=== PATIENT | male | born 1980 | race Two or more races ===

== ENCOUNTER 2017-01-18 21:32 | Inpatient (IN) | payer MEDICARE, MEDICAID ==
[~2017-01-18 21:32] MED LIST: ANTIBIOTIC; ASPIRIN; BACTRIM DS1 TA1 PO; CIPRO500 MG PO; FLEXERIL10 MG PO; FLONASE ALLERG9.9 ML; GLUCOPHAGE1000 MG PO; GLUCOPHAGE500 M3 PO; HUMALOG100 U/ML SQ; HUMALOG100 UNIT/2 SC; HUMULIN N100 U/ML; HUMULIN R100 U/ML; HUMULIN-R100 UNITS/ SC; IBUPROFEN IB200 M1 PO; IBUPROFEN800 M1 PO; KEFLEX500 MG PO; LEVEMIR100 U/M SQ; LEVEMIR100 UNITS/ SC; LEVOFLOXACIN750 M1 PO; LISINOPRIL5 M1 PO; LISINOPRIL5 MG PO; LORTAB 7.5/5001 TAB PO; MOTRIN600 MG PO; NORCO 5-325 TA1 EACH PO; NORCO 5/325 TAB1 TAB PO; NORCO 7.5-3251 EACH PO; NOVOLIN N100 U/ML SQ; PERCOCET 5/3251 TAB PO; TYLENOL325 MG PO; TYLENOL650 MG PO; VOLTAREN75 MG PO; no home meds
[2017-01-18] MEDS ORDERED: NO HOME MEDICATION (23:10)
[2017-01-18 23:53] LABS: BASO % 0.2 % (0-2); EOS % 0.3 % (0-7); HCT-HEMATOCRIT 38.9 % (36.0-53.5); HGB-HEMOGLOBIN 13.2 gm/dl (13.5-17.0); IMMATURE GRANULOCYTES ABSOLUTE 0.04 tho/cmm (0-0.03); IMMATURE GRANULOCYTES PERCENT 0.3 % (0-0.3); LYMPH ABSOLUTE COUNT 1.4 tho/cmm (0.8-4.5); MCHC MEAN CORPUSCULAR HGB CONC 33.9 % (32.0-36.0); MCV (MEAN CELL VOLUME) 88.4 fl (82.0-96.0); MEAN PLATELET VOLUME 9.5 cmc (9.4-12.4); MONO % 10.9 % (0-12); MONOCYTE ABSOLUTE COUNT 1.3 tho/cmm (0.0-1.2); NEUTROPHIL ABSOLUTE COUNT 8.9 tho/cmm (1.6-8.0); NEUTROPHIL-AUTOMATED 8.9 tho/cmm (1.6-8.0); NEUTROPHILS % 76.3 % (40-80); PLATELET COUNT 468 tho/cmm (150-450); RED CELL DISTRIBUTION WIDTH 12.5 % (12.4-16.4); WHITE BLOOD COUNT 11.7 tho/cmm (4.0-10.0)
[2017-01-19 00:03] LABS: ALB/GLOB RATIO 0.4 (0.8-2.0); ALBUMIN 2.4 g/dl (3.5-5.0); ALKALINE PHOSPHATASE 77 U/L (33-138); ANION GAP 12 mmol/L (0-20); AST/SGOT 10 U/L (10-40); BILIRUBIN,TOTAL 0.5 mg/dl (0.0-1.5); BLOOD UREA NITROGEN 14 mg/dl (6-24); CALCIUM 8.5 mg/dl (8.5-10.5); CARBON DIOXIDE-VENOUS 26 mmol/L (22-32); CHLORIDE 99 mmol/l (96-110); CREATININE 0.91 mg/dl (0.60-1.30); GLUCOSE 397 mg/dL (70-110); POTASSIUM 4.1 mmol/L (3.7-5.1); SODIUM 133 mmol/L (135-145); eGFR VALUE FOR BLACK >90 mL/Min
[2017-01-19 00:05] LABS: ALT/SGPT 9 U/L (12-78)
[2017-01-19 00:32] LABS: PROCALCITONIN 0.07 ng/ml (0.05-0.09)
[2017-01-19 00:50] LABS: URINE LEUKOCYTE ESTERASE POSITIVE (NEG); URINE PROTEIN MODERATE (NEG)
[2017-01-19 00:56] LABS: URINE APPEARANCE HAZY; URINE BILIRUBIN NEGATIVE (NEG); URINE BLOOD MODERATE (NEG); URINE COLOR YELLOW; URINE GLUCOSE (UA) LARGE (NEG); URINE KETONE NEGATIVE (NEG); URINE NITRITE NEGATIVE (NEG)
[2017-01-19 00:59] LABS: URINE BACTERIA 2+; URINE EPITHELIAL CELLS RARE /[HPF] (0-10); URINE WBC 20-30 /[HPF] (0-5)
[2017-01-19 08:26] LABS: BASO % 0.1 % (0-2); EOS % 0.5 % (0-7); EOSINOPHIL ABSOLUTE COUNT 0.1 tho/cmm (0.0-0.7); HCT-HEMATOCRIT 34.4 % (36.0-53.5); HGB-HEMOGLOBIN 11.6 gm/dl (13.5-17.0); IMMATURE GRANULOCYTES ABSOLUTE 0.04 tho/cmm (0-0.03); IMMATURE GRANULOCYTES PERCENT 0.3 % (0-0.3); LYMPH % 13.7 % (20-45); LYMPH ABSOLUTE COUNT 1.9 tho/cmm (0.8-4.5); MCH (MEAN CORPUSCULAR HGB) 29.7 pg (28.0-32.0); MCHC MEAN CORPUSCULAR HGB CONC 33.7 % (32.0-36.0); MEAN PLATELET VOLUME 9.6 cmc (9.4-12.4); MONO % 11.7 % (0-12); MONOCYTE ABSOLUTE COUNT 1.6 tho/cmm (0.0-1.2); NEUTROPHIL ABSOLUTE COUNT 10.2 tho/cmm (1.6-8.0); NEUTROPHIL-AUTOMATED 10.2 tho/cmm (1.6-8.0); NEUTROPHILS % 73.7 % (40-80); PLATELET COUNT 408 tho/cmm (150-450); RED BLOOD COUNT 3.91 mil/cmm (4.40-5.70); RED CELL DISTRIBUTION WIDTH 12.5 % (12.4-16.4); WHITE BLOOD COUNT 13.8 tho/cmm (4.0-10.0)
[2017-01-19 08:35] LABS: ANION GAP 11 mmol/L (0-20); BLOOD UREA NITROGEN 10 mg/dl (6-24); C-REACTIVE PROTEIN 17.5 mg/dl (0-0.9); CARBON DIOXIDE-VENOUS 25 mmol/L (22-32); CHLORIDE 104 mmol/l (96-110); CREATININE 0.92 mg/dl (0.60-1.30); MAGNESIUM 2.3 mg/dl (1.3-2.6); POTASSIUM 4.2 mmol/L (3.7-5.1); SODIUM 136 mmol/L (135-145); eGFR VALUE FOR BLACK >90 mL/Min
[2017-01-19 08:40] LABS: GLUCOSE 506 mg/dL (70-110)
[2017-01-19 09:10] LABS: ESR-ERYTHROCYTE SED RATE 139 mm/hr (0-15)
[2017-01-21 06:23] LABS: ANION GAP 11 mmol/L (0-20); BLOOD UREA NITROGEN 9 mg/dl (6-24); CARBON DIOXIDE-VENOUS 25 mmol/L (22-32); CHLORIDE 104 mmol/l (96-110); GLUCOSE 272 mg/dL (70-110); POTASSIUM 3.8 mmol/L (3.7-5.1); SODIUM 136 mmol/L (135-145); eGFR VALUE FOR BLACK >90 mL/Min
[2017-01-21 06:26] LABS: BASO % 0.2 % (0-2); EOS % 1.4 % (0-7); EOSINOPHIL ABSOLUTE COUNT 0.2 tho/cmm (0.0-0.7); HGB-HEMOGLOBIN 11.3 gm/dl (13.5-17.0); IMMATURE GRANULOCYTES ABSOLUTE 0.04 tho/cmm (0-0.03); IMMATURE GRANULOCYTES PERCENT 0.3 % (0-0.3); LYMPH % 15.8 % (20-45); LYMPH ABSOLUTE COUNT 2.1 tho/cmm (0.8-4.5); MCH (MEAN CORPUSCULAR HGB) 29.4 pg (28.0-32.0); MCHC MEAN CORPUSCULAR HGB CONC 33.2 % (32.0-36.0); MCV (MEAN CELL VOLUME) 88.5 fl (82.0-96.0); MEAN PLATELET VOLUME 9.5 cmc (9.4-12.4); MONO % 10.3 % (0-12); MONOCYTE ABSOLUTE COUNT 1.4 tho/cmm (0.0-1.2); NEUTROPHIL ABSOLUTE COUNT 9.6 tho/cmm (1.6-8.0); NEUTROPHIL-AUTOMATED 9.6 tho/cmm (1.6-8.0); PLATELET COUNT 451 tho/cmm (150-450); RED BLOOD COUNT 3.84 mil/cmm (4.40-5.70); RED CELL DISTRIBUTION WIDTH 12.5 % (12.4-16.4); WHITE BLOOD COUNT 13.3 tho/cmm (4.0-10.0)
[2017-01-21 06:30] LABS: C-REACTIVE PROTEIN 12.6 mg/dl (0-0.9)
[2017-01-26 05:19] LABS: BASO % 0.2 % (0-2); EOS % 1.7 % (0-7); EOSINOPHIL ABSOLUTE COUNT 0.2 tho/cmm (0.0-0.7); HCT-HEMATOCRIT 35.1 % (36.0-53.5); HGB-HEMOGLOBIN 11.6 gm/dl (13.5-17.0); IMMATURE GRANULOCYTES ABSOLUTE 0.02 tho/cmm (0-0.03); IMMATURE GRANULOCYTES PERCENT 0.2 % (0-0.3); LYMPH % 13.5 % (20-45); LYMPH ABSOLUTE COUNT 1.7 tho/cmm (0.8-4.5); MCH (MEAN CORPUSCULAR HGB) 29.3 pg (28.0-32.0); MCV (MEAN CELL VOLUME) 88.6 fl (82.0-96.0); MEAN PLATELET VOLUME 8.9 cmc (9.4-12.4); MONO % 11.2 % (0-12); MONOCYTE ABSOLUTE COUNT 1.4 tho/cmm (0.0-1.2); NEUTROPHIL ABSOLUTE COUNT 9.1 tho/cmm (1.6-8.0); NEUTROPHIL-AUTOMATED 9.1 tho/cmm (1.6-8.0); NEUTROPHILS % 73.2 % (40-80); PLATELET COUNT 367 tho/cmm (150-450); RED BLOOD COUNT 3.96 mil/cmm (4.40-5.70); RED CELL DISTRIBUTION WIDTH 12.5 % (12.4-16.4); WHITE BLOOD COUNT 12.5 tho/cmm (4.0-10.0)
[2017-01-26 05:42] LABS: ANION GAP 11 mmol/L (0-20); BLOOD UREA NITROGEN 23 mg/dl (6-24); CARBON DIOXIDE-VENOUS 29 mmol/L (22-32); CHLORIDE 101 mmol/l (96-110); CREATININE 0.95 mg/dl (0.60-1.30); GLUCOSE 325 mg/dL (70-110); POTASSIUM 4.7 mmol/L (3.7-5.1); SODIUM 136 mmol/L (135-145); eGFR VALUE FOR BLACK >90 mL/Min
[2017-01-27 06:25] LABS: BASO % 0.2 % (0-2); EOS % 2.5 % (0-7); EOSINOPHIL ABSOLUTE COUNT 0.3 tho/cmm (0.0-0.7); HCT-HEMATOCRIT 34.4 % (36.0-53.5); HGB-HEMOGLOBIN 11.4 gm/dl (13.5-17.0); IMMATURE GRANULOCYTES ABSOLUTE 0.04 tho/cmm (0-0.03); IMMATURE GRANULOCYTES PERCENT 0.3 % (0-0.3); LYMPH % 16.5 % (20-45); MCH (MEAN CORPUSCULAR HGB) 29.5 pg (28.0-32.0); MCHC MEAN CORPUSCULAR HGB CONC 33.1 % (32.0-36.0); MCV (MEAN CELL VOLUME) 88.9 fl (82.0-96.0); MEAN PLATELET VOLUME 9.4 cmc (9.4-12.4); MONO % 11.4 % (0-12); MONOCYTE ABSOLUTE COUNT 1.4 tho/cmm (0.0-1.2); NEUTROPHIL ABSOLUTE COUNT 8.5 tho/cmm (1.6-8.0); NEUTROPHIL-AUTOMATED 8.5 tho/cmm (1.6-8.0); NEUTROPHILS % 69.1 % (40-80); RED BLOOD COUNT 3.87 mil/cmm (4.40-5.70); RED CELL DISTRIBUTION WIDTH 12.6 % (12.4-16.4); WHITE BLOOD COUNT 12.2 tho/cmm (4.0-10.0)
[2017-01-27 06:34] LABS: ANION GAP 12 mmol/L (0-20); BLOOD UREA NITROGEN 30 mg/dl (6-24); C-REACTIVE PROTEIN 10.6 mg/dl (0-0.9); CARBON DIOXIDE-VENOUS 26 mmol/L (22-32); CHLORIDE 102 mmol/l (96-110); CREATININE 1.08 mg/dl (0.60-1.30); GLUCOSE 370 mg/dL (70-110); PHOSPHOROUS 3.5 mg/dl (2.5-4.9); POTASSIUM 4.3 mmol/L (3.7-5.1); SODIUM 136 mmol/L (135-145); eGFR VALUE FOR BLACK >90 mL/Min
[2017-01-27 09:38] LABS: PLATELET COUNT 182 tho/cmm (150-450)
[2017-01-28 07:16] LABS: BASO % 0.3 % (0-2); EOSINOPHIL ABSOLUTE COUNT 0.4 tho/cmm (0.0-0.7); HCT-HEMATOCRIT 33.9 % (36.0-53.5); HGB-HEMOGLOBIN 11.1 gm/dl (13.5-17.0); IMMATURE GRANULOCYTES ABSOLUTE 0.04 tho/cmm (0-0.03); IMMATURE GRANULOCYTES PERCENT 0.3 % (0-0.3); LYMPH % 20.5 % (20-45); LYMPH ABSOLUTE COUNT 2.4 tho/cmm (0.8-4.5); MCH (MEAN CORPUSCULAR HGB) 29.2 pg (28.0-32.0); MCHC MEAN CORPUSCULAR HGB CONC 32.7 % (32.0-36.0); MCV (MEAN CELL VOLUME) 89.2 fl (82.0-96.0); MEAN PLATELET VOLUME 9.1 cmc (9.4-12.4); MONOCYTE ABSOLUTE COUNT 1.4 tho/cmm (0.0-1.2); NEUTROPHIL ABSOLUTE COUNT 7.6 tho/cmm (1.6-8.0); NEUTROPHIL-AUTOMATED 7.6 tho/cmm (1.6-8.0); NEUTROPHILS % 63.9 % (40-80); PLATELET COUNT 112 tho/cmm (150-450); RED CELL DISTRIBUTION WIDTH 12.6 % (12.4-16.4); WHITE BLOOD COUNT 11.9 tho/cmm (4.0-10.0)
[2017-01-28 07:39] LABS: ALB/GLOB RATIO 0.3 (0.8-2.0); ALKALINE PHOSPHATASE 53 U/L (33-138); ALT/SGPT 13 U/L (12-78); ANION GAP 11 mmol/L (0-20); AST/SGOT 9 U/L (10-40); BILIRUBIN,TOTAL 0.1 mg/dl (0.0-1.5); BLOOD UREA NITROGEN 31 mg/dl (6-24); C-REACTIVE PROTEIN 10.8 mg/dl (0-0.9); CALCIUM 8.9 mg/dl (8.5-10.5); CARBON DIOXIDE-VENOUS 25 mmol/L (22-32); CHLORIDE 110 mmol/l (96-110); CREATININE 1.05 mg/dl (0.60-1.30); POTASSIUM 3.7 mmol/L (3.7-5.1); SODIUM 142 mmol/L (135-145); eGFR VALUE FOR BLACK >90 mL/Min
[2017-01-28 07:42] LABS: GLUCOSE 132 mg/dL (70-110)
[2017-01-28 08:38] LABS: ANION GAP 12 mmol/L (0-20); BLOOD UREA NITROGEN 32 mg/dl (6-24); CALCIUM 8.7 mg/dl (8.5-10.5); CARBON DIOXIDE-VENOUS 24 mmol/L (22-32); CHLORIDE 110 mmol/l (96-110); CREATININE 1.06 mg/dl (0.60-1.30); GLUCOSE 132 mg/dL (70-110); POTASSIUM 3.7 mmol/L (3.7-5.1); PREALBUMIN 15.4 mg/dl (20.0-40.0); SODIUM 142 mmol/L (135-145); eGFR VALUE FOR BLACK >90 mL/Min
[2017-01-29 09:06] LABS: BASO % 0.2 % (0-2); EOS % 3.3 % (0-7); EOSINOPHIL ABSOLUTE COUNT 0.4 tho/cmm (0.0-0.7); HCT-HEMATOCRIT 34.6 % (36.0-53.5); HGB-HEMOGLOBIN 11.3 gm/dl (13.5-17.0); IMMATURE GRANULOCYTES ABSOLUTE 0.04 tho/cmm (0-0.03); IMMATURE GRANULOCYTES PERCENT 0.4 % (0-0.3); LYMPH % 16.1 % (20-45); LYMPH ABSOLUTE COUNT 1.8 tho/cmm (0.8-4.5); MCHC MEAN CORPUSCULAR HGB CONC 32.7 % (32.0-36.0); MCV (MEAN CELL VOLUME) 88.7 fl (82.0-96.0); MONO % 8.5 % (0-12); MONOCYTE ABSOLUTE COUNT 0.9 tho/cmm (0.0-1.2); NEUTROPHIL ABSOLUTE COUNT 7.8 tho/cmm (1.6-8.0); NEUTROPHIL-AUTOMATED 7.8 tho/cmm (1.6-8.0); NEUTROPHILS % 71.5 % (40-80); PLATELET COUNT 76 tho/cmm (150-450); RED CELL DISTRIBUTION WIDTH 12.6 % (12.4-16.4); WHITE BLOOD COUNT 10.9 tho/cmm (4.0-10.0)
[2017-01-29 09:16] LABS: ANION GAP 11 mmol/L (0-20); BLOOD UREA NITROGEN 26 mg/dl (6-24); C-REACTIVE PROTEIN 6.6 mg/dl (0-0.9); CALCIUM 8.9 mg/dl (8.5-10.5); CARBON DIOXIDE-VENOUS 24 mmol/L (22-32); CHLORIDE 108 mmol/l (96-110); CREATININE 1.03 mg/dl (0.60-1.30); GLUCOSE 158 mg/dL (70-110); POTASSIUM 3.8 mmol/L (3.7-5.1); SODIUM 139 mmol/L (135-145); eGFR VALUE FOR BLACK >90 mL/Min
[2017-01-30 06:43] LABS: BASO % 0.3 % (0-2); EOS % 3.5 % (0-7); EOSINOPHIL ABSOLUTE COUNT 0.4 tho/cmm (0.0-0.7); HCT-HEMATOCRIT 29.8 % (36.0-53.5); HGB-HEMOGLOBIN 9.8 gm/dl (13.5-17.0); IMMATURE GRANULOCYTES ABSOLUTE 0.04 tho/cmm (0-0.03); IMMATURE GRANULOCYTES PERCENT 0.4 % (0-0.3); LYMPH % 20.1 % (20-45); LYMPH ABSOLUTE COUNT 2.2 tho/cmm (0.8-4.5); MCH (MEAN CORPUSCULAR HGB) 28.9 pg (28.0-32.0); MCHC MEAN CORPUSCULAR HGB CONC 32.9 % (32.0-36.0); MCV (MEAN CELL VOLUME) 87.9 fl (82.0-96.0); MEAN PLATELET VOLUME 9.6 cmc (9.4-12.4); MONOCYTE ABSOLUTE COUNT 1.2 tho/cmm (0.0-1.2); NEUTROPHILS % 64.7 % (40-80); RED BLOOD COUNT 3.39 mil/cmm (4.40-5.70); RED CELL DISTRIBUTION WIDTH 12.6 % (12.4-16.4); WHITE BLOOD COUNT 10.8 tho/cmm (4.0-10.0)
[2017-01-30 06:59] LABS: ANION GAP 9 mmol/L (0-20); BLOOD UREA NITROGEN 30 mg/dl (6-24); C-REACTIVE PROTEIN 6.1 mg/dl (0-0.9); CALCIUM 8.3 mg/dl (8.5-10.5); CARBON DIOXIDE-VENOUS 26 mmol/L (22-32); CHLORIDE 108 mmol/l (96-110); CREATININE 1.19 mg/dl (0.60-1.30); GLUCOSE 222 mg/dL (70-110); SODIUM 139 mmol/L (135-145); eGFR VALUE FOR BLACK >90 mL/Min
[2017-01-30 08:26] LABS: PLATELET COUNT 41 tho/cmm (150-450)
[2017-01-30 12:53] LABS: PF4 (HIT) ANTIBODY POSITIVE (NEGATIVE)
[2017-01-31 05:36] LABS: BASO % 0.3 % (0-2); EOS % 3.3 % (0-7); EOSINOPHIL ABSOLUTE COUNT 0.4 tho/cmm (0.0-0.7); HCT-HEMATOCRIT 28.8 % (36.0-53.5); HGB-HEMOGLOBIN 9.3 gm/dl (13.5-17.0); IMMATURE GRANULOCYTES ABSOLUTE 0.05 tho/cmm (0-0.03); IMMATURE GRANULOCYTES PERCENT 0.4 % (0-0.3); LYMPH % 20.1 % (20-45); LYMPH ABSOLUTE COUNT 2.4 tho/cmm (0.8-4.5); MCH (MEAN CORPUSCULAR HGB) 28.6 pg (28.0-32.0); MCHC MEAN CORPUSCULAR HGB CONC 32.3 % (32.0-36.0); MCV (MEAN CELL VOLUME) 88.6 fl (82.0-96.0); MEAN PLATELET VOLUME 9.8 cmc (9.4-12.4); MONO % 9.8 % (0-12); MONOCYTE ABSOLUTE COUNT 1.2 tho/cmm (0.0-1.2); NEUTROPHIL ABSOLUTE COUNT 7.9 tho/cmm (1.6-8.0); NEUTROPHIL-AUTOMATED 7.9 tho/cmm (1.6-8.0); NEUTROPHILS % 66.1 % (40-80); RED BLOOD COUNT 3.25 mil/cmm (4.40-5.70); RED CELL DISTRIBUTION WIDTH 12.6 % (12.4-16.4)
[2017-01-31 05:57] LABS: ANION GAP 11 mmol/L (0-20); BLOOD UREA NITROGEN 30 mg/dl (6-24); C-REACTIVE PROTEIN 6.1 mg/dl (0-0.9); CALCIUM 8.4 mg/dl (8.5-10.5); CARBON DIOXIDE-VENOUS 24 mmol/L (22-32); CHLORIDE 110 mmol/l (96-110); CREATININE 0.94 mg/dl (0.60-1.30); GLUCOSE 136 mg/dL (70-110); SODIUM 141 mmol/L (135-145); eGFR VALUE FOR BLACK >90 mL/Min
[2017-01-31 06:08] LABS: PLATELET COUNT 24 tho/cmm (150-450)
[2017-01-31 13:50] LABS: PF4 (HIT) ANTIBODY POSITIVE (NEGATIVE)
[2017-01-31 19:52] LABS: PROTHROMBIN TIME 11.3 SECONDS (9.0-13.6)
[2017-01-31 20:28] LABS: TSH-THYROID STIMULATING HORM. 1.37 uIU/ml (0.40-3.80)
[2017-02-01 05:50] LABS: BASO % 0.2 % (0-2); EOS % 2.9 % (0-7); EOSINOPHIL ABSOLUTE COUNT 0.4 tho/cmm (0.0-0.7); HCT-HEMATOCRIT 28.5 % (36.0-53.5); HGB-HEMOGLOBIN 9.4 gm/dl (13.5-17.0); IMMATURE GRANULOCYTES ABSOLUTE 0.05 tho/cmm (0-0.03); IMMATURE GRANULOCYTES PERCENT 0.4 % (0-0.3); LYMPH % 17.4 % (20-45); LYMPH ABSOLUTE COUNT 2.3 tho/cmm (0.8-4.5); MCH (MEAN CORPUSCULAR HGB) 28.9 pg (28.0-32.0); MCV (MEAN CELL VOLUME) 87.7 fl (82.0-96.0); MEAN PLATELET VOLUME 10.6 cmc (9.4-12.4); MONO % 8.9 % (0-12); MONOCYTE ABSOLUTE COUNT 1.2 tho/cmm (0.0-1.2); NEUTROPHIL ABSOLUTE COUNT 9.3 tho/cmm (1.6-8.0); NEUTROPHIL-AUTOMATED 9.3 tho/cmm (1.6-8.0); NEUTROPHILS % 70.2 % (40-80); RED BLOOD COUNT 3.25 mil/cmm (4.40-5.70); RED CELL DISTRIBUTION WIDTH 12.5 % (12.4-16.4); WHITE BLOOD COUNT 13.2 tho/cmm (4.0-10.0)
[2017-02-01 06:05] LABS: PLATELET COUNT 16 tho/cmm (150-450)
[2017-02-01 06:06] LABS: ALB/GLOB RATIO 0.3 (0.8-2.0); ALBUMIN 2.1 g/dl (3.5-5.0); ALKALINE PHOSPHATASE 53 U/L (33-138); ALT/SGPT 14 U/L (12-78); ANION GAP 11 mmol/L (0-20); AST/SGOT 8 U/L (10-40); BILIRUBIN,TOTAL 0.2 mg/dl (0.0-1.5); BLOOD UREA NITROGEN 36 mg/dl (6-24); C-REACTIVE PROTEIN 7.6 mg/dl (0-0.9); CALCIUM 8.7 mg/dl (8.5-10.5); CARBON DIOXIDE-VENOUS 25 mmol/L (22-32); CHLORIDE 106 mmol/l (96-110); CREATININE 1.12 mg/dl (0.60-1.30); GLUCOSE 196 mg/dL (70-110); POTASSIUM 3.9 mmol/L (3.7-5.1); SODIUM 138 mmol/L (135-145); eGFR VALUE FOR BLACK >90 mL/Min
[2017-02-02 02:32] LABS: ANION GAP 11 mmol/L (0-20); BLOOD UREA NITROGEN 36 mg/dl (6-24); CALCIUM 8.5 mg/dl (8.5-10.5); CARBON DIOXIDE-VENOUS 26 mmol/L (22-32); CHLORIDE 107 mmol/l (96-110); CREATININE 1.15 mg/dl (0.60-1.30); GLUCOSE 175 mg/dL (70-110); MAGNESIUM 2.1 mg/dl (1.3-2.6); SODIUM 140 mmol/L (135-145); eGFR VALUE FOR BLACK >90 mL/Min
[2017-02-02 05:18] LABS: BASO % 0.2 % (0-2); EOS % 3.8 % (0-7); EOSINOPHIL ABSOLUTE COUNT 0.5 tho/cmm (0.0-0.7); HCT-HEMATOCRIT 26.2 % (36.0-53.5); HGB-HEMOGLOBIN 8.5 gm/dl (13.5-17.0); IMMATURE GRANULOCYTES ABSOLUTE 0.11 tho/cmm (0-0.03); IMMATURE GRANULOCYTES PERCENT 0.9 % (0-0.3); LYMPH % 23.9 % (20-45); MCH (MEAN CORPUSCULAR HGB) 28.4 pg (28.0-32.0); MCHC MEAN CORPUSCULAR HGB CONC 32.4 % (32.0-36.0); MCV (MEAN CELL VOLUME) 87.6 fl (82.0-96.0); MONO % 9.4 % (0-12); MONOCYTE ABSOLUTE COUNT 1.2 tho/cmm (0.0-1.2); NEUTROPHIL ABSOLUTE COUNT 7.8 tho/cmm (1.6-8.0); NEUTROPHIL-AUTOMATED 7.8 tho/cmm (1.6-8.0); NEUTROPHILS % 61.8 % (40-80); RED BLOOD COUNT 2.99 mil/cmm (4.40-5.70); RED CELL DISTRIBUTION WIDTH 12.6 % (12.4-16.4); WHITE BLOOD COUNT 12.6 tho/cmm (4.0-10.0)
[2017-02-02 05:31] LABS: PLATELET COUNT 10 tho/cmm (150-450)
[2017-02-02 05:36] LABS: ALBUMIN 1.9 g/dl (3.5-5.0); ANION GAP 11 mmol/L (0-20); BLOOD UREA NITROGEN 37 mg/dl (6-24); C-REACTIVE PROTEIN 7.5 mg/dl (0-0.9); CALCIUM 8.5 mg/dl (8.5-10.5); CARBON DIOXIDE-VENOUS 26 mmol/L (22-32); CHLORIDE 108 mmol/l (96-110); CREATININE 1.26 mg/dl (0.60-1.30); GLUCOSE 160 mg/dL (70-110); SODIUM 141 mmol/L (135-145); eGFR VALUE FOR BLACK 86 mL/Min
[2017-02-03 06:57] LABS: BASO % 0.3 % (0-2); EOS % 3.7 % (0-7); EOSINOPHIL ABSOLUTE COUNT 0.4 tho/cmm (0.0-0.7); HCT-HEMATOCRIT 25.6 % (36.0-53.5); HGB-HEMOGLOBIN 8.5 gm/dl (13.5-17.0); IMMATURE GRANULOCYTES ABSOLUTE 0.08 tho/cmm (0-0.03); IMMATURE GRANULOCYTES PERCENT 0.7 % (0-0.3); LYMPH % 25.9 % (20-45); LYMPH ABSOLUTE COUNT 2.8 tho/cmm (0.8-4.5); MCH (MEAN CORPUSCULAR HGB) 28.7 pg (28.0-32.0); MCHC MEAN CORPUSCULAR HGB CONC 33.2 % (32.0-36.0); MCV (MEAN CELL VOLUME) 86.5 fl (82.0-96.0); MONO % 11.5 % (0-12); MONOCYTE ABSOLUTE COUNT 1.3 tho/cmm (0.0-1.2); NEUTROPHIL ABSOLUTE COUNT 6.3 tho/cmm (1.6-8.0); NEUTROPHIL-AUTOMATED 6.3 tho/cmm (1.6-8.0); NEUTROPHILS % 57.9 % (40-80); RED BLOOD COUNT 2.96 mil/cmm (4.40-5.70); RED CELL DISTRIBUTION WIDTH 12.7 % (12.4-16.4)
[2017-02-03 07:03] LABS: PLATELET COUNT 59 tho/cmm (150-450)
[2017-02-04 04:07] LABS: BASO % 0.3 % (0-2); EOS % 3.5 % (0-7); EOSINOPHIL ABSOLUTE COUNT 0.4 tho/cmm (0.0-0.7); HCT-HEMATOCRIT 24.6 % (36.0-53.5); IMMATURE GRANULOCYTES ABSOLUTE 0.07 tho/cmm (0-0.03); IMMATURE GRANULOCYTES PERCENT 0.6 % (0-0.3); LYMPH % 26.8 % (20-45); LYMPH ABSOLUTE COUNT 2.9 tho/cmm (0.8-4.5); MCH (MEAN CORPUSCULAR HGB) 28.4 pg (28.0-32.0); MCHC MEAN CORPUSCULAR HGB CONC 32.5 % (32.0-36.0); MCV (MEAN CELL VOLUME) 87.2 fl (82.0-96.0); MEAN PLATELET VOLUME 10.8 cmc (9.4-12.4); MONO % 9.9 % (0-12); MONOCYTE ABSOLUTE COUNT 1.1 tho/cmm (0.0-1.2); NEUTROPHIL ABSOLUTE COUNT 6.4 tho/cmm (1.6-8.0); NEUTROPHIL-AUTOMATED 6.4 tho/cmm (1.6-8.0); NEUTROPHILS % 58.9 % (40-80); RED BLOOD COUNT 2.82 mil/cmm (4.40-5.70); RED CELL DISTRIBUTION WIDTH 12.9 % (12.4-16.4); WHITE BLOOD COUNT 10.9 tho/cmm (4.0-10.0)
[2017-02-04 04:17] LABS: C-REACTIVE PROTEIN 5.2 mg/dl (0-0.9); PLATELET COUNT 186 tho/cmm (150-450)
[2017-02-04 04:59] LABS: PROCALCITONIN <0.05 ng/ml (0.05-0.09)
[2017-02-04 09:28] LABS: FERRITIN 204 ng/ml (22-388)
[2017-02-05 19:33] LABS: CREATININE 0.65 mg/dl (0.67-1.17)
[2017-02-06 05:40] LABS: BASO % 0.3 % (0-2); EOS % 3.4 % (0-7); EOSINOPHIL ABSOLUTE COUNT 0.4 tho/cmm (0.0-0.7); HCT-HEMATOCRIT 24.5 % (36.0-53.5); IMMATURE GRANULOCYTES ABSOLUTE 0.04 tho/cmm (0-0.03); IMMATURE GRANULOCYTES PERCENT 0.3 % (0-0.3); LYMPH % 16.8 % (20-45); MCH (MEAN CORPUSCULAR HGB) 28.6 pg (28.0-32.0); MCHC MEAN CORPUSCULAR HGB CONC 32.7 % (32.0-36.0); MCV (MEAN CELL VOLUME) 87.5 fl (82.0-96.0); MONOCYTE ABSOLUTE COUNT 1.6 tho/cmm (0.0-1.2); NEUTROPHIL ABSOLUTE COUNT 7.9 tho/cmm (1.6-8.0); NEUTROPHIL-AUTOMATED 7.9 tho/cmm (1.6-8.0); NEUTROPHILS % 66.2 % (40-80); RED CELL DISTRIBUTION WIDTH 12.9 % (12.4-16.4); WHITE BLOOD COUNT 11.9 tho/cmm (4.0-10.0)
[2017-02-06 05:51] LABS: PLATELET COUNT 495 tho/cmm (150-450)
[2017-02-06 05:52] LABS: C-REACTIVE PROTEIN 8.7 mg/dl (0-0.9); MAGNESIUM 2.2 mg/dl (1.3-2.6)
[2017-02-06 06:55] LABS: ESR-ERYTHROCYTE SED RATE >140 mm/hr (0-15)
--- NOTE | 2017-02-06 19:23 | NUR ---
PATIENT C/O HEADACHE THIS AM, STATING HIS SHUNT IS NOT WORKING PROPERLY BECAUSE HE HAS HAD THIS HAPPEN BEFORE. NOTIFIED ON-CALL IMS. ASKED PATIENT IF HE HAS A PRIMARY NEUROLOGIST THAT HE SEES AND PATIENT STATES HE HAS NOT SEEN ONE SINCE HIS LAST SHUNT REVISION TWENTY YEARS AGO, ALSO ASKED PATIENT WHEN THE LAST TIME HE HAD PROBLEMS WITH HIS SHUNT AND WHAT SYMPTOMS HE HAS AND PATIENT CLOSED HIS EYES AND DID NOT PROVIDE AN ANSWER. 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
[2017-02-07 05:47] LABS: BASO % 0.2 % (0-2); EOS % 4.1 % (0-7); EOSINOPHIL ABSOLUTE COUNT 0.5 tho/cmm (0.0-0.7); HCT-HEMATOCRIT 24.3 % (36.0-53.5); HGB-HEMOGLOBIN 7.9 gm/dl (13.5-17.0); IMMATURE GRANULOCYTES ABSOLUTE 0.04 tho/cmm (0-0.03); IMMATURE GRANULOCYTES PERCENT 0.3 % (0-0.3); LYMPH % 17.7 % (20-45); LYMPH ABSOLUTE COUNT 2.3 tho/cmm (0.8-4.5); MCH (MEAN CORPUSCULAR HGB) 28.4 pg (28.0-32.0); MCHC MEAN CORPUSCULAR HGB CONC 32.5 % (32.0-36.0); MCV (MEAN CELL VOLUME) 87.4 fl (82.0-96.0); MEAN PLATELET VOLUME 8.9 cmc (9.4-12.4); MONO % 11.2 % (0-12); MONOCYTE ABSOLUTE COUNT 1.4 tho/cmm (0.0-1.2); NEUTROPHIL ABSOLUTE COUNT 8.5 tho/cmm (1.6-8.0); NEUTROPHIL-AUTOMATED 8.5 tho/cmm (1.6-8.0); NEUTROPHILS % 66.5 % (40-80); PLATELET COUNT 596 tho/cmm (150-450); RED BLOOD COUNT 2.78 mil/cmm (4.40-5.70); RED CELL DISTRIBUTION WIDTH 12.9 % (12.4-16.4); WHITE BLOOD COUNT 12.8 tho/cmm (4.0-10.0)
[2017-02-07 06:02] LABS: ALB/GLOB RATIO 0.4 (0.8-2.0); ALKALINE PHOSPHATASE 42 U/L (33-138); ALT/SGPT 15 U/L (12-78); ANION GAP 11 mmol/L (0-20); AST/SGOT 8 U/L (10-40); BILIRUBIN,TOTAL 0.1 mg/dl (0.0-1.5); BLOOD UREA NITROGEN 28 mg/dl (6-24); C-REACTIVE PROTEIN 9.7 mg/dl (0-0.9); CALCIUM 8.4 mg/dl (8.5-10.5); CARBON DIOXIDE-VENOUS 26 mmol/L (22-32); CHLORIDE 106 mmol/l (96-110); CREATININE 0.76 mg/dl (0.60-1.30); GLUCOSE 185 mg/dL (70-110); MAGNESIUM 2.2 mg/dl (1.3-2.6); POTASSIUM 4.2 mmol/L (3.7-5.1); SODIUM 139 mmol/L (135-145); eGFR VALUE FOR BLACK >90 mL/Min
[2017-02-08 06:13] LABS: BASO % 0.5 % (0-2); EOS % 6.5 % (0-7); EOSINOPHIL ABSOLUTE COUNT 0.6 tho/cmm (0.0-0.7); HCT-HEMATOCRIT 24.1 % (36.0-53.5); HGB-HEMOGLOBIN 7.7 gm/dl (13.5-17.0); IMMATURE GRANULOCYTES ABSOLUTE 0.02 tho/cmm (0-0.03); IMMATURE GRANULOCYTES PERCENT 0.2 % (0-0.3); LYMPH % 29.5 % (20-45); LYMPH ABSOLUTE COUNT 2.5 tho/cmm (0.8-4.5); MCH (MEAN CORPUSCULAR HGB) 28.2 pg (28.0-32.0); MCV (MEAN CELL VOLUME) 88.3 fl (82.0-96.0); MONO % 15.4 % (0-12); MONOCYTE ABSOLUTE COUNT 1.3 tho/cmm (0.0-1.2); NEUTROPHILS % 47.9 % (40-80); PLATELET COUNT 745 tho/cmm (150-450); RED BLOOD COUNT 2.73 mil/cmm (4.40-5.70); RED CELL DISTRIBUTION WIDTH 13.1 % (12.4-16.4); WHITE BLOOD COUNT 8.4 tho/cmm (4.0-10.0)
[2017-02-08 09:28] LABS: INR 1.1 INR (0.9-1.1); PROTHROMBIN TIME 12.5 SECONDS (9.0-13.6)
[2017-02-09 06:22] LABS: BASO % 0.7 % (0-2); BASO ABSOLUTE COUNT 0.1 tho/cmm (0.0-0.2); EOS % 7.4 % (0-7); EOSINOPHIL ABSOLUTE COUNT 0.6 tho/cmm (0.0-0.7); HCT-HEMATOCRIT 25.2 % (36.0-53.5); HGB-HEMOGLOBIN 8.1 gm/dl (13.5-17.0); IMMATURE GRANULOCYTES ABSOLUTE 0.03 tho/cmm (0-0.03); IMMATURE GRANULOCYTES PERCENT 0.4 % (0-0.3); LYMPH % 25.9 % (20-45); MCH (MEAN CORPUSCULAR HGB) 28.2 pg (28.0-32.0); MCHC MEAN CORPUSCULAR HGB CONC 32.1 % (32.0-36.0); MCV (MEAN CELL VOLUME) 87.8 fl (82.0-96.0); MEAN PLATELET VOLUME 8.5 cmc (9.4-12.4); MONO % 12.1 % (0-12); MONOCYTE ABSOLUTE COUNT 0.9 tho/cmm (0.0-1.2); NEUTROPHIL ABSOLUTE COUNT 4.1 tho/cmm (1.6-8.0); NEUTROPHIL-AUTOMATED 4.1 tho/cmm (1.6-8.0); NEUTROPHILS % 53.5 % (40-80); PLATELET COUNT 833 tho/cmm (150-450); RED BLOOD COUNT 2.87 mil/cmm (4.40-5.70); RED CELL DISTRIBUTION WIDTH 12.9 % (12.4-16.4); WHITE BLOOD COUNT 7.6 tho/cmm (4.0-10.0)
[2017-02-09 06:32] LABS: ANION GAP 9 mmol/L (0-20); BLOOD UREA NITROGEN 26 mg/dl (6-24); CALCIUM 8.5 mg/dl (8.5-10.5); CARBON DIOXIDE-VENOUS 28 mmol/L (22-32); CHLORIDE 103 mmol/l (96-110); CREATININE 0.69 mg/dl (0.60-1.30); GLUCOSE 175 mg/dL (70-110); PHOSPHOROUS 3.5 mg/dl (2.5-4.9); POTASSIUM 4.3 mmol/L (3.7-5.1); SODIUM 136 mmol/L (135-145); eGFR VALUE FOR BLACK >90 mL/Min
[2017-02-09 07:10] LABS: PROCALCITONIN <0.05 ng/ml (0.05-0.09)
[2017-02-10 07:23] LABS: BASO % 0.5 % (0-2); EOS % 8.2 % (0-7); EOSINOPHIL ABSOLUTE COUNT 0.6 tho/cmm (0.0-0.7); IMMATURE GRANULOCYTES ABSOLUTE 0.02 tho/cmm (0-0.03); IMMATURE GRANULOCYTES PERCENT 0.3 % (0-0.3); LYMPH % 30.2 % (20-45); LYMPH ABSOLUTE COUNT 2.4 tho/cmm (0.8-4.5); MCH (MEAN CORPUSCULAR HGB) 28.1 pg (28.0-32.0); MCV (MEAN CELL VOLUME) 87.7 fl (82.0-96.0); MEAN PLATELET VOLUME 8.4 cmc (9.4-12.4); MONO % 13.4 % (0-12); NEUTROPHIL ABSOLUTE COUNT 3.7 tho/cmm (1.6-8.0); NEUTROPHIL-AUTOMATED 3.7 tho/cmm (1.6-8.0); NEUTROPHILS % 47.4 % (40-80); PLATELET COUNT 802 tho/cmm (150-450); RED BLOOD COUNT 2.85 mil/cmm (4.40-5.70); WHITE BLOOD COUNT 7.8 tho/cmm (4.0-10.0)
[2017-02-10 07:24] LABS: INR 1.1 INR (0.9-1.1); PROTHROMBIN TIME 12.7 SECONDS (9.0-13.6)
[2017-02-10 07:31] LABS: ANION GAP 10 mmol/L (0-20); BLOOD UREA NITROGEN 27 mg/dl (6-24); CALCIUM 8.2 mg/dl (8.5-10.5); CARBON DIOXIDE-VENOUS 29 mmol/L (22-32); CHLORIDE 107 mmol/l (96-110); GLUCOSE 153 mg/dL (70-110); POTASSIUM 4.2 mmol/L (3.7-5.1); SODIUM 142 mmol/L (135-145); eGFR VALUE FOR BLACK >90 mL/Min
[2017-02-10 07:32] LABS: CREATININE 1.11 mg/dl (0.60-1.30)
[2017-02-11 06:12] LABS: BASO % 0.5 % (0-2); EOS % 8.7 % (0-7); EOSINOPHIL ABSOLUTE COUNT 0.7 tho/cmm (0.0-0.7); HCT-HEMATOCRIT 24.5 % (36.0-53.5); HGB-HEMOGLOBIN 7.7 gm/dl (13.5-17.0); IMMATURE GRANULOCYTES ABSOLUTE 0.02 tho/cmm (0-0.03); IMMATURE GRANULOCYTES PERCENT 0.3 % (0-0.3); LYMPH % 28.8 % (20-45); LYMPH ABSOLUTE COUNT 2.3 tho/cmm (0.8-4.5); MCH (MEAN CORPUSCULAR HGB) 27.6 pg (28.0-32.0); MCHC MEAN CORPUSCULAR HGB CONC 31.4 % (32.0-36.0); MCV (MEAN CELL VOLUME) 87.8 fl (82.0-96.0); MEAN PLATELET VOLUME 8.1 cmc (9.4-12.4); MONO % 12.6 % (0-12); NEUTROPHIL ABSOLUTE COUNT 3.9 tho/cmm (1.6-8.0); NEUTROPHIL-AUTOMATED 3.9 tho/cmm (1.6-8.0); NEUTROPHILS % 49.1 % (40-80); PLATELET COUNT 823 tho/cmm (150-450); RED BLOOD COUNT 2.79 mil/cmm (4.40-5.70); RED CELL DISTRIBUTION WIDTH 12.9 % (12.4-16.4)
[2017-02-11 06:18] LABS: INR 1.1 INR (0.9-1.1); PROTHROMBIN TIME 12.3 SECONDS (9.0-13.6)
[2017-02-11 06:26] LABS: ANION GAP 9 mmol/L (0-20); BLOOD UREA NITROGEN 27 mg/dl (6-24); CALCIUM 8.5 mg/dl (8.5-10.5); CARBON DIOXIDE-VENOUS 30 mmol/L (22-32); CHLORIDE 107 mmol/l (96-110); GLUCOSE 213 mg/dL (70-110); POTASSIUM 4.4 mmol/L (3.7-5.1); SODIUM 142 mmol/L (135-145); eGFR VALUE FOR BLACK >90 mL/Min
[2017-02-12 06:51] LABS: INR 1.1 INR (0.9-1.1); PROTHROMBIN TIME 12.4 SECONDS (9.0-13.6)
[2017-02-12 06:56] LABS: BASO % 0.2 % (0-2); EOS % 4.3 % (0-7); EOSINOPHIL ABSOLUTE COUNT 0.5 tho/cmm (0.0-0.7); HCT-HEMATOCRIT 28.5 % (36.0-53.5); HGB-HEMOGLOBIN 9.4 gm/dl (13.5-17.0); IMMATURE GRANULOCYTES ABSOLUTE 0.04 tho/cmm (0-0.03); IMMATURE GRANULOCYTES PERCENT 0.3 % (0-0.3); LYMPH % 22.3 % (20-45); LYMPH ABSOLUTE COUNT 2.7 tho/cmm (0.8-4.5); MCH (MEAN CORPUSCULAR HGB) 28.8 pg (28.0-32.0); MCV (MEAN CELL VOLUME) 87.4 fl (82.0-96.0); MEAN PLATELET VOLUME 8.5 cmc (9.4-12.4); MONO % 12.8 % (0-12); MONOCYTE ABSOLUTE COUNT 1.5 tho/cmm (0.0-1.2); NEUTROPHIL ABSOLUTE COUNT 7.3 tho/cmm (1.6-8.0); NEUTROPHIL-AUTOMATED 7.3 tho/cmm (1.6-8.0); NEUTROPHILS % 60.1 % (40-80); PLATELET COUNT 790 tho/cmm (150-450); RED BLOOD COUNT 3.26 mil/cmm (4.40-5.70); RED CELL DISTRIBUTION WIDTH 13.5 % (12.4-16.4)
[2017-02-12 07:00] LABS: WHITE BLOOD COUNT 12.1 tho/cmm (4.0-10.0)
[2017-02-12 07:05] LABS: ANION GAP 10 mmol/L (0-20); BLOOD UREA NITROGEN 21 mg/dl (6-24); CALCIUM 8.2 mg/dl (8.5-10.5); CARBON DIOXIDE-VENOUS 26 mmol/L (22-32); CHLORIDE 107 mmol/l (96-110); CREATININE 0.75 mg/dl (0.60-1.30); GLUCOSE 210 mg/dL (70-110); SODIUM 139 mmol/L (135-145); eGFR VALUE FOR BLACK >90 mL/Min
[2017-02-13 05:31] LABS: BASO % 0.4 % (0-2); BASO ABSOLUTE COUNT 0.1 tho/cmm (0.0-0.2); EOS % 6.5 % (0-7); EOSINOPHIL ABSOLUTE COUNT 0.8 tho/cmm (0.0-0.7); HCT-HEMATOCRIT 29.7 % (36.0-53.5); HGB-HEMOGLOBIN 9.5 gm/dl (13.5-17.0); IMMATURE GRANULOCYTES ABSOLUTE 0.06 tho/cmm (0-0.03); IMMATURE GRANULOCYTES PERCENT 0.5 % (0-0.3); LYMPH % 25.5 % (20-45); LYMPH ABSOLUTE COUNT 3.2 tho/cmm (0.8-4.5); MCH (MEAN CORPUSCULAR HGB) 28.1 pg (28.0-32.0); MCV (MEAN CELL VOLUME) 87.9 fl (82.0-96.0); MEAN PLATELET VOLUME 8.3 cmc (9.4-12.4); MONO % 11.2 % (0-12); MONOCYTE ABSOLUTE COUNT 1.4 tho/cmm (0.0-1.2); NEUTROPHIL ABSOLUTE COUNT 7.1 tho/cmm (1.6-8.0); NEUTROPHIL-AUTOMATED 7.1 tho/cmm (1.6-8.0); NEUTROPHILS % 55.9 % (40-80); PLATELET COUNT 754 tho/cmm (150-450); RED BLOOD COUNT 3.38 mil/cmm (4.40-5.70); RED CELL DISTRIBUTION WIDTH 13.5 % (12.4-16.4); WHITE BLOOD COUNT 12.7 tho/cmm (4.0-10.0)
[2017-02-13 05:46] LABS: ANION GAP 10 mmol/L (0-20); BLOOD UREA NITROGEN 24 mg/dl (6-24); CALCIUM 8.3 mg/dl (8.5-10.5); CARBON DIOXIDE-VENOUS 27 mmol/L (22-32); CHLORIDE 104 mmol/l (96-110); CREATININE 0.83 mg/dl (0.60-1.30); GLUCOSE 189 mg/dL (70-110); SODIUM 137 mmol/L (135-145); eGFR VALUE FOR BLACK >90 mL/Min
[2017-02-14 05:53] LABS: BASO % 0.2 % (0-2); EOS % 6.1 % (0-7); EOSINOPHIL ABSOLUTE COUNT 0.8 tho/cmm (0.0-0.7); HCT-HEMATOCRIT 31.4 % (36.0-53.5); HGB-HEMOGLOBIN 10.3 gm/dl (13.5-17.0); IMMATURE GRANULOCYTES ABSOLUTE 0.07 tho/cmm (0-0.03); IMMATURE GRANULOCYTES PERCENT 0.5 % (0-0.3); LYMPH % 18.9 % (20-45); LYMPH ABSOLUTE COUNT 2.5 tho/cmm (0.8-4.5); MCH (MEAN CORPUSCULAR HGB) 28.7 pg (28.0-32.0); MCHC MEAN CORPUSCULAR HGB CONC 32.8 % (32.0-36.0); MCV (MEAN CELL VOLUME) 87.5 fl (82.0-96.0); MEAN PLATELET VOLUME 8.3 cmc (9.4-12.4); MONO % 12.5 % (0-12); MONOCYTE ABSOLUTE COUNT 1.7 tho/cmm (0.0-1.2); NEUTROPHIL ABSOLUTE COUNT 8.2 tho/cmm (1.6-8.0); NEUTROPHIL-AUTOMATED 8.2 tho/cmm (1.6-8.0); NEUTROPHILS % 61.8 % (40-80); PLATELET COUNT 713 tho/cmm (150-450); RED BLOOD COUNT 3.59 mil/cmm (4.40-5.70); RED CELL DISTRIBUTION WIDTH 13.3 % (12.4-16.4); WHITE BLOOD COUNT 13.2 tho/cmm (4.0-10.0)
[2017-02-14 06:01] LABS: PROTHROMBIN TIME 11.3 SECONDS (9.0-13.6)
[2017-02-14 06:09] LABS: ANION GAP 11 mmol/L (0-20); BLOOD UREA NITROGEN 25 mg/dl (6-24); C-REACTIVE PROTEIN 7.8 mg/dl (0-0.9); CALCIUM 8.7 mg/dl (8.5-10.5); CARBON DIOXIDE-VENOUS 26 mmol/L (22-32); CHLORIDE 104 mmol/l (96-110); CREATININE 0.71 mg/dl (0.60-1.30); GLUCOSE 228 mg/dL (70-110); POTASSIUM 4.3 mmol/L (3.7-5.1); SODIUM 137 mmol/L (135-145); eGFR VALUE FOR BLACK >90 mL/Min
[2017-02-15 06:01] LABS: BASO % 0.2 % (0-2); EOS % 5.6 % (0-7); EOSINOPHIL ABSOLUTE COUNT 0.7 tho/cmm (0.0-0.7); HCT-HEMATOCRIT 30.2 % (36.0-53.5); HGB-HEMOGLOBIN 9.9 gm/dl (13.5-17.0); IMMATURE GRANULOCYTES ABSOLUTE 0.05 tho/cmm (0-0.03); IMMATURE GRANULOCYTES PERCENT 0.4 % (0-0.3); LYMPH ABSOLUTE COUNT 2.3 tho/cmm (0.8-4.5); MCH (MEAN CORPUSCULAR HGB) 28.5 pg (28.0-32.0); MCHC MEAN CORPUSCULAR HGB CONC 32.8 % (32.0-36.0); MEAN PLATELET VOLUME 8.3 cmc (9.4-12.4); MONO % 12.1 % (0-12); MONOCYTE ABSOLUTE COUNT 1.5 tho/cmm (0.0-1.2); NEUTROPHIL ABSOLUTE COUNT 8.1 tho/cmm (1.6-8.0); NEUTROPHIL-AUTOMATED 8.1 tho/cmm (1.6-8.0); NEUTROPHILS % 63.7 % (40-80); PLATELET COUNT 647 tho/cmm (150-450); RED BLOOD COUNT 3.47 mil/cmm (4.40-5.70); RED CELL DISTRIBUTION WIDTH 13.6 % (12.4-16.4); WHITE BLOOD COUNT 12.8 tho/cmm (4.0-10.0)
[2017-02-15 06:04] LABS: INR 1.1 INR (0.9-1.1); PROTHROMBIN TIME 12.9 SECONDS (9.0-13.6)
[2017-02-15 06:20] LABS: ANION GAP 11 mmol/L (0-20); BLOOD UREA NITROGEN 27 mg/dl (6-24); CALCIUM 8.6 mg/dl (8.5-10.5); CARBON DIOXIDE-VENOUS 27 mmol/L (22-32); CHLORIDE 104 mmol/l (96-110); CREATININE 0.82 mg/dl (0.60-1.30); GLUCOSE 162 mg/dL (70-110); POTASSIUM 4.2 mmol/L (3.7-5.1); SODIUM 138 mmol/L (135-145); eGFR VALUE FOR BLACK >90 mL/Min
[2017-02-16 05:35] LABS: BASO % 0.3 % (0-2); EOS % 5.6 % (0-7); EOSINOPHIL ABSOLUTE COUNT 0.6 tho/cmm (0.0-0.7); HCT-HEMATOCRIT 30.7 % (36.0-53.5); HGB-HEMOGLOBIN 9.8 gm/dl (13.5-17.0); IMMATURE GRANULOCYTES ABSOLUTE 0.04 tho/cmm (0-0.03); IMMATURE GRANULOCYTES PERCENT 0.4 % (0-0.3); LYMPH % 24.3 % (20-45); LYMPH ABSOLUTE COUNT 2.7 tho/cmm (0.8-4.5); MCH (MEAN CORPUSCULAR HGB) 27.8 pg (28.0-32.0); MCHC MEAN CORPUSCULAR HGB CONC 31.9 % (32.0-36.0); MCV (MEAN CELL VOLUME) 87.2 fl (82.0-96.0); MEAN PLATELET VOLUME 8.2 cmc (9.4-12.4); MONO % 12.5 % (0-12); MONOCYTE ABSOLUTE COUNT 1.4 tho/cmm (0.0-1.2); NEUTROPHIL ABSOLUTE COUNT 6.3 tho/cmm (1.6-8.0); NEUTROPHIL-AUTOMATED 6.3 tho/cmm (1.6-8.0); NEUTROPHILS % 56.9 % (40-80); PLATELET COUNT 556 tho/cmm (150-450); RED BLOOD COUNT 3.52 mil/cmm (4.40-5.70); RED CELL DISTRIBUTION WIDTH 13.5 % (12.4-16.4)
[2017-02-16 05:57] LABS: INR 1.1 INR (0.9-1.1); PROTHROMBIN TIME 13.2 SECONDS (9.0-13.6)
[2017-02-16 06:16] LABS: ANION GAP 11 mmol/L (0-20); BLOOD UREA NITROGEN 34 mg/dl (6-24); CALCIUM 8.5 mg/dl (8.5-10.5); CARBON DIOXIDE-VENOUS 29 mmol/L (22-32); CHLORIDE 103 mmol/l (96-110); CREATININE 0.82 mg/dl (0.60-1.30); GLUCOSE 180 mg/dL (70-110); POTASSIUM 4.4 mmol/L (3.7-5.1); SODIUM 139 mmol/L (135-145); eGFR VALUE FOR BLACK >90 mL/Min
[2017-02-17 05:52] LABS: BASO % 0.2 % (0-2); EOS % 6.4 % (0-7); EOSINOPHIL ABSOLUTE COUNT 0.7 tho/cmm (0.0-0.7); HCT-HEMATOCRIT 31.1 % (36.0-53.5); IMMATURE GRANULOCYTES ABSOLUTE 0.03 tho/cmm (0-0.03); IMMATURE GRANULOCYTES PERCENT 0.3 % (0-0.3); INR 1.1 INR (0.9-1.1); LYMPH % 26.9 % (20-45); LYMPH ABSOLUTE COUNT 2.9 tho/cmm (0.8-4.5); MCHC MEAN CORPUSCULAR HGB CONC 32.2 % (32.0-36.0); MCV (MEAN CELL VOLUME) 87.1 fl (82.0-96.0); MEAN PLATELET VOLUME 8.2 cmc (9.4-12.4); MONO % 8.9 % (0-12); MONOCYTE ABSOLUTE COUNT 0.9 tho/cmm (0.0-1.2); NEUTROPHIL ABSOLUTE COUNT 6.1 tho/cmm (1.6-8.0); NEUTROPHIL-AUTOMATED 6.1 tho/cmm (1.6-8.0); NEUTROPHILS % 57.3 % (40-80); PLATELET COUNT 544 tho/cmm (150-450); PROTHROMBIN TIME 13.1 SECONDS (9.0-13.6); RED BLOOD COUNT 3.57 mil/cmm (4.40-5.70); RED CELL DISTRIBUTION WIDTH 13.5 % (12.4-16.4); WHITE BLOOD COUNT 10.6 tho/cmm (4.0-10.0)
[2017-02-17 06:01] LABS: ANION GAP 12 mmol/L (0-20); BLOOD UREA NITROGEN 31 mg/dl (6-24); C-REACTIVE PROTEIN 8.3 mg/dl (0-0.9); CALCIUM 8.5 mg/dl (8.5-10.5); CARBON DIOXIDE-VENOUS 27 mmol/L (22-32); CHLORIDE 105 mmol/l (96-110); CREATININE 0.75 mg/dl (0.60-1.30); GLUCOSE 145 mg/dL (70-110); POTASSIUM 4.1 mmol/L (3.7-5.1); SODIUM 140 mmol/L (135-145); eGFR VALUE FOR BLACK >90 mL/Min
[2017-02-18 07:17] LABS: INR 1.1 INR (0.9-1.1); PROTHROMBIN TIME 12.2 SECONDS (9.0-13.6)
[2017-02-18 07:21] LABS: BASO % 0.5 % (0-2); EOS % 8.6 % (0-7); EOSINOPHIL ABSOLUTE COUNT 0.7 tho/cmm (0.0-0.7); HCT-HEMATOCRIT 30.4 % (36.0-53.5); HGB-HEMOGLOBIN 9.7 gm/dl (13.5-17.0); IMMATURE GRANULOCYTES ABSOLUTE 0.03 tho/cmm (0-0.03); IMMATURE GRANULOCYTES PERCENT 0.4 % (0-0.3); LYMPH ABSOLUTE COUNT 2.1 tho/cmm (0.8-4.5); MCH (MEAN CORPUSCULAR HGB) 27.7 pg (28.0-32.0); MCHC MEAN CORPUSCULAR HGB CONC 31.9 % (32.0-36.0); MCV (MEAN CELL VOLUME) 86.9 fl (82.0-96.0); MEAN PLATELET VOLUME 8.5 cmc (9.4-12.4); MONOCYTE ABSOLUTE COUNT 0.9 tho/cmm (0.0-1.2); NEUTROPHIL ABSOLUTE COUNT 4.2 tho/cmm (1.6-8.0); NEUTROPHIL-AUTOMATED 4.2 tho/cmm (1.6-8.0); NEUTROPHILS % 52.5 % (40-80); PLATELET COUNT 491 tho/cmm (150-450); RED CELL DISTRIBUTION WIDTH 13.5 % (12.4-16.4); WHITE BLOOD COUNT 7.9 tho/cmm (4.0-10.0)
[2017-02-18 07:22] LABS: ANION GAP 12 mmol/L (0-20); BLOOD UREA NITROGEN 32 mg/dl (6-24); CALCIUM 8.7 mg/dl (8.5-10.5); CARBON DIOXIDE-VENOUS 27 mmol/L (22-32); CHLORIDE 104 mmol/l (96-110); CREATININE 1.07 mg/dl (0.60-1.30); POTASSIUM 4.4 mmol/L (3.7-5.1); SODIUM 139 mmol/L (135-145); eGFR VALUE FOR BLACK >90 mL/Min
[2017-02-18 07:23] LABS: GLUCOSE 282 mg/dL (70-110)
[2017-02-19 15:12] LABS: BASO % 0.2 % (0-2); EOS % 4.5 % (0-7); EOSINOPHIL ABSOLUTE COUNT 0.6 tho/cmm (0.0-0.7); HGB-HEMOGLOBIN 10.8 gm/dl (13.5-17.0); IMMATURE GRANULOCYTES ABSOLUTE 0.05 tho/cmm (0-0.03); IMMATURE GRANULOCYTES PERCENT 0.4 % (0-0.3); LYMPH % 15.3 % (20-45); LYMPH ABSOLUTE COUNT 2.1 tho/cmm (0.8-4.5); MCH (MEAN CORPUSCULAR HGB) 28.6 pg (28.0-32.0); MCHC MEAN CORPUSCULAR HGB CONC 32.7 % (32.0-36.0); MCV (MEAN CELL VOLUME) 87.5 fl (82.0-96.0); MEAN PLATELET VOLUME 8.3 cmc (9.4-12.4); MONO % 9.3 % (0-12); MONOCYTE ABSOLUTE COUNT 1.3 tho/cmm (0.0-1.2); NEUTROPHIL ABSOLUTE COUNT 9.9 tho/cmm (1.6-8.0); NEUTROPHIL-AUTOMATED 9.9 tho/cmm (1.6-8.0); NEUTROPHILS % 70.3 % (40-80); PLATELET COUNT 505 tho/cmm (150-450); RED BLOOD COUNT 3.77 mil/cmm (4.40-5.70); RED CELL DISTRIBUTION WIDTH 13.6 % (12.4-16.4)
[2017-02-19 15:15] LABS: INR 1.1 INR (0.9-1.1); PROTHROMBIN TIME 12.9 SECONDS (9.0-13.6)
[2017-02-19 15:28] LABS: ALBUMIN 2.5 g/dl (3.5-5.0); ANION GAP 14 mmol/L (0-20); BLOOD UREA NITROGEN 37 mg/dl (6-24); C-REACTIVE PROTEIN 6.1 mg/dl (0-0.9); CALCIUM 8.9 mg/dl (8.5-10.5); CARBON DIOXIDE-VENOUS 27 mmol/L (22-32); CHLORIDE 104 mmol/l (96-110); CREATININE 1.22 mg/dl (0.60-1.30); PHOSPHOROUS 4.6 mg/dl (2.5-4.9); POTASSIUM 3.7 mmol/L (3.7-5.1); PREALBUMIN 24.4 mg/dl (20.0-40.0); SODIUM 141 mmol/L (135-145); eGFR VALUE FOR BLACK 89 mL/Min
[2017-02-19 15:32] LABS: GLUCOSE 90 mg/dL (70-110)
[2017-02-21 06:15] LABS: BASO % 0.1 % (0-2); EOS % 0.5 % (0-7); EOSINOPHIL ABSOLUTE COUNT 0.1 tho/cmm (0.0-0.7); HGB-HEMOGLOBIN 9.5 gm/dl (13.5-17.0); IMMATURE GRANULOCYTES ABSOLUTE 0.03 tho/cmm (0-0.03); IMMATURE GRANULOCYTES PERCENT 0.3 % (0-0.3); LYMPH % 15.6 % (20-45); LYMPH ABSOLUTE COUNT 1.4 tho/cmm (0.8-4.5); MCH (MEAN CORPUSCULAR HGB) 27.9 pg (28.0-32.0); MCHC MEAN CORPUSCULAR HGB CONC 32.8 % (32.0-36.0); MCV (MEAN CELL VOLUME) 85.3 fl (82.0-96.0); MEAN PLATELET VOLUME 8.4 cmc (9.4-12.4); MONO % 9.3 % (0-12); MONOCYTE ABSOLUTE COUNT 0.9 tho/cmm (0.0-1.2); NEUTROPHIL ABSOLUTE COUNT 6.9 tho/cmm (1.6-8.0); NEUTROPHIL-AUTOMATED 6.9 tho/cmm (1.6-8.0); NEUTROPHILS % 74.2 % (40-80); PLATELET COUNT 388 tho/cmm (150-450); RED CELL DISTRIBUTION WIDTH 13.8 % (12.4-16.4); WHITE BLOOD COUNT 9.3 tho/cmm (4.0-10.0)
[2017-02-21 06:35] LABS: ALBUMIN 2.2 g/dl (3.5-5.0); ANION GAP 13 mmol/L (0-20); BLOOD UREA NITROGEN 28 mg/dl (6-24); C-REACTIVE PROTEIN 5.3 mg/dl (0-0.9); CALCIUM 8.4 mg/dl (8.5-10.5); CARBON DIOXIDE-VENOUS 27 mmol/L (22-32); CHLORIDE 105 mmol/l (96-110); CREATININE 0.79 mg/dl (0.60-1.30); PHOSPHOROUS 4.4 mg/dl (2.5-4.9); POTASSIUM 3.8 mmol/L (3.7-5.1); SODIUM 141 mmol/L (135-145); eGFR VALUE FOR BLACK >90 mL/Min
[2017-02-21 06:37] LABS: GLUCOSE 251 mg/dL (70-110)
[2017-04-12] MEDS ORDERED: ELIQUIS5 M1 PO (13:27)
[2017-04-12] MEDS ORDERED: IBUPROFEN400 M1 PO (13:28)
[2017-04-12] MEDS ORDERED: IBUPROFEN600 M1 PO (13:28)
[2017-04-12] MEDS ORDERED: NOVOLOG FL100 UNIT/2 SC (13:28)
[2017-04-12] MEDS ORDERED: LEVEMIR100 UNITS/ SC (13:29)
[2017-04-12] MEDS ORDERED: NOVOLOG100 UNITS/ SC (13:29)
[2017-04-12] MEDS ORDERED: BACITRACIN1 G1 TOP (13:30)
[2017-04-12] MEDS ORDERED: VITAMIN D31000 UNI3 PO (13:30)
[2017-04-12] MEDS ORDERED: FLONASE ALLERG9.9 ML (13:30)
== END 2017-02-23 16:42 | DRG 628 ==
LOC: EDMED 21:32 → EMR2 01-19 03:31 → 5WE 01-19 06:05 → ORW 01-25 14:12 → PACU 01-25 14:57 → BURN 01-25 17:00 → ORW 02-11 07:20 → BURN 02-11 09:25
PROVIDERS: Emergency Medicine; Hospitalist; Internal Medicine; Internal Medicine Infectious Disease; Internal Medicine Medical Oncology; Registered Nurse; Surgery; ADMIT Family Medicine
PROC: 0QB20ZX Excision of Right Pelvic Bone, Open Approach, Diagnostic (ICD-10-PCS; principal; 2017-01-25)
PROC: 0KX Muscles, Transfer (ICD-10-PCS; 2017-01-25)
PROC: 0Y300ZZ Control Bleeding in Right Buttock, Open Approach (ICD-10-PCS; 2017-01-26)
PROC: 05H633Z Insertion of Infusion Device into Left Subclavian Vein, Percutaneous Approach (ICD-10-PCS; 2017-02-09)
PROC: 0QB20ZZ Excision of Right Pelvic Bone, Open Approach (ICD-10-PCS; 2017-02-11)
PROC: 0KX Muscles, Transfer (ICD-10-PCS; 2017-02-11)
PROC: 30243N1 Transfusion of Nonautologous Red Blood Cells into Central Vein, Percutaneous Approach (ICD-10-PCS; 2017-02-11)
PROC: 0J990ZZ Drainage of Buttock Subcutaneous Tissue and Fascia, Open Approach (ICD-10-PCS; 2017-02-14)
PROC: 0JW Subcutaneous Tissue and Fascia, Revision (ICD-10-PCS; 2017-02-20)
DX: E11.622 Type 2 diabetes mellitus with other skin ulcer (principal); L89.154 Pressure ulcer of sacral region, stage 4; L89.214 Pressure ulcer of right hip, stage 4; E11.40 Type 2 diabetes mellitus with diabetic neuropathy, unspecified; G82.20 Paraplegia, unspecified; I96 Gangrene, not elsewhere classified; D69.59 Other secondary thrombocytopenia; N39.0 Urinary tract infection, site not specified; T81.4XXA Infection following a procedure, initial encounter; L02.31 Cutaneous abscess of buttock; L76.22 Postprocedural hemorrhage of skin and subcutaneous tissue following other procedure; M86.68 Other chronic osteomyelitis, other site; E11.65 Type 2 diabetes mellitus with hyperglycemia; B95.1 Streptococcus, group B, as the cause of diseases classified elsewhere; Z91.19 Patient's noncompliance with other medical treatment and regimen; N31.9 Neuromuscular dysfunction of bladder, unspecified; Q05.9 Spina bifida, unspecified; Z98.2 Presence of cerebrospinal fluid drainage device; F17.210 Nicotine dependence, cigarettes, uncomplicated; D63.8 Anemia in other chronic diseases classified elsewhere; S76.011A Strain of muscle, fascia and tendon of right hip, initial encounter; B96.1 Klebsiella pneumoniae [K. pneumoniae] as the cause of diseases classified elsewhere; T36.0X5A Adverse effect of penicillins, initial encounter; Z79.4 Long term (current) use of insulin; F12.90 Cannabis use, unspecified, uncomplicated; Z88.8 Allergy status to other drugs, medicaments and biological substances; Z91.040 Latex allergy status; E11.69 Type 2 diabetes mellitus with other specified complication; E88.09 Other disorders of plasma-protein metabolism, not elsewhere classified; R51 Headache; Z23 Encounter for immunization
CPT/HCPCS: A9577; C1751; G0008; G0009; J0131; J0171; J1170; J1650; J1815; J1956; J2060; J2405; J2543; J3010; J7030; J7050; J7999; P9016

== ENCOUNTER 2017-04-14 07:42 | Inpatient (IN) | payer MEDICARE, MEDICAID ==
[~2017-04-14 07:42] MED LIST changes: +BACITRACIN1 G1 TOP; +ELIQUIS5 M1 PO; +IBUPROFEN400 M1 PO; +IBUPROFEN600 M1 PO; +NO HOME MEDICATION; +NOVOLOG FL100 UNIT/2 SC; +NOVOLOG100 UNITS/ SC; +VITAMIN D31000 UNI3 PO
[2017-04-14] MEDS ORDERED: HYDROCODON-ACE1 EA16 PO (08:00)
[2017-04-14] MEDS ORDERED: BACLOFEN10 M1 PO (08:01)
[2017-04-14 08:47] LABS: BASO % 0.5 % (0-2); EOS % 4.2 % (0-7); EOSINOPHIL ABSOLUTE COUNT 0.3 tho/cmm (0.0-0.7); HCT-HEMATOCRIT 38.1 % (36.0-53.5); HGB-HEMOGLOBIN 12.7 gm/dl (13.5-17.0); IMMATURE GRANULOCYTES ABSOLUTE 0.02 tho/cmm (0-0.03); IMMATURE GRANULOCYTES PERCENT 0.3 % (0-0.3); LYMPH % 25.8 % (20-45); MCH (MEAN CORPUSCULAR HGB) 27.4 pg (28.0-32.0); MCHC MEAN CORPUSCULAR HGB CONC 33.3 % (32.0-36.0); MCV (MEAN CELL VOLUME) 82.1 fl (82.0-96.0); MEAN PLATELET VOLUME 10.2 cmc (9.4-12.4); MONO % 9.1 % (0-12); MONOCYTE ABSOLUTE COUNT 0.7 tho/cmm (0.0-1.2); NEUTROPHIL ABSOLUTE COUNT 4.7 tho/cmm (1.6-8.0); NEUTROPHIL-AUTOMATED 4.7 tho/cmm (1.6-8.0); NEUTROPHILS % 60.1 % (40-80); PLATELET COUNT 327 tho/cmm (150-450); RED BLOOD COUNT 4.64 mil/cmm (4.40-5.70); RED CELL DISTRIBUTION WIDTH 14.4 % (12.4-16.4); WHITE BLOOD COUNT 7.9 tho/cmm (4.0-10.0)
[2017-04-14 14:15] LABS: eGFR VALUE FOR BLACK >90 mL/Min
[2017-04-14] MEDS ORDERED: BACITRACIN28.4 G2 TP (14:40)
[2017-04-14] MEDS ORDERED: ARTIFICIAL TEAR1512 OP (14:41)
[2017-04-14] MEDS ORDERED: OCEAN104 ML (14:42)
[2017-04-14] MEDS ORDERED: GLUCOSE4 GM CH (14:43)
[2017-04-14] MEDS ORDERED: GLUCAGEN1 MG IM (14:44)
[2017-04-14] MEDS ORDERED: CALCIUM500 M4 CH (14:45)
[2017-04-14] MEDS ORDERED: DEXTROSE 525 GM/501 IV (14:45)
[2017-04-14] MEDS ORDERED: SWEEN 24255 GM TP (14:46)
[2017-04-14] MEDS ORDERED: BENTYL10 M1 PO (14:46)
[2017-04-14] MEDS ORDERED: ICY HOT CREAM35.4 GM TP (14:47)
[2017-04-14] MEDS ORDERED: MILK OF MAGNESIA PO (14:47)
[2017-04-14] MEDS ORDERED: MIRALAX17 G2 PO (14:48)
[2017-04-14] MEDS ORDERED: BISCOLAX10 MG PR (14:49)
[2017-04-14] MEDS ORDERED: LOPERAMIDE2 M2 PO (14:49)
[2017-04-14] MEDS ORDERED: TYLENOL325 M2 PO (14:50)
[2017-04-14] MEDS ORDERED: LIDOCAINE1 EACH TP (14:52)
[2017-04-17 07:31] LABS: CREATININE 0.95 mg/dl (0.60-1.30); eGFR VALUE FOR BLACK >90 mL/Min
== END 2017-04-18 16:00 | DRG 573 ==
LOC: SHSB 07:42 → ORW 10:34 → BURN 10:40
PROVIDERS: Anesthesiology; ADMIT Surgery
PROC: 0JB90ZZ Excision of Buttock Subcutaneous Tissue and Fascia, Open Approach (ICD-10-PCS; principal; 2017-04-14)
PROC: 0HR8X74 Replacement of Buttock Skin with Autologous Tissue Substitute, Partial Thickness, External Approach (ICD-10-PCS; 2017-04-14)
PROC: 0HBHXZZ Excision of Right Upper Leg Skin, External Approach (ICD-10-PCS; 2017-04-14)
PROC: 0JW Subcutaneous Tissue and Fascia, Revision (ICD-10-PCS; 2017-04-14)
DX: L89.214 Pressure ulcer of right hip, stage 4 (principal); N31.9 Neuromuscular dysfunction of bladder, unspecified; Q05.9 Spina bifida, unspecified; E11.9 Type 2 diabetes mellitus without complications; S31.819A Unspecified open wound of right buttock, initial encounter; F17.210 Nicotine dependence, cigarettes, uncomplicated; Z91.19 Patient's noncompliance with other medical treatment and regimen
CPT/HCPCS: C1751; J0171; J1170; J1580; J1815; J3370; J7030; J7050